=== PATIENT | female | born 1990 | race Caucasian/White ===

== ENCOUNTER → 2019-05-18 | Day surgery (SDC) | payer OTHER ==
[~2019-05-18] MED LIST: ALPRAZOLAM0.25 MG PO; DICYCLOMINE HCL10 MG PO; FENTANYL CITRATE/PF 100MCG/2 ML INJ ONE; HYDROXYZINE HCL25 MG PO; LOESTRIN FE 1-1 EACH PO; MIDAZOLAM HCL 2 MG/2 ML VIAL ONE; MIRTAZAPINE15 MG PO; PANTOPRAZOLE SO40 MG PO; PROMETHAZINE HC25 M1 PO; PROPOFOL IV EMULSION 10 MG/ML 50 ML VIAL ONE; TRIAZOLAM0.25 MG PO; TRINESSA
--- OUTSIDE RECORDS SUMMARY | 2019-05-18 06:27 | XMS REPORT | Clinical Summary ---
Author Author [facility] Address Unknown Phone Unavailable Care Team Providers Care [employer] Helper Name Role Phone Sharphoma PCP Allergies Comments Active Allergy Reactions Severity Noted Date Latex Rash Low 11/27/2016 Medications End Date Status Medication Sig Dispensed Refills Start Date Active pantoprazole (PROTONIX) Take 40 mg by 0 40 MG tablet mouth 2 (two) times daily. Active norethindrone-ethinyl Take 1 tablet 0 estradiol (LO LOESTRIN by mouth FE) 1 mg-10 mcg (24)/10 daily. mcg (2) per tablet Active ALPRAZolam (XANAX) 0.25 Take 0.25 mg 0 MG tablet by mouth as needed for Anxiety. Active dicyclomine (BENTYL) 10 Take 10 mg by 0 MG capsule mouth as needed. Active Problems Not on file Social History Date Tobacco Use Types Packs/Day Years Used Never Smoker Smokeless Tobacco: Never Used Alcohol Use Drinks/Week oz/Week Comments Yes occasional Sex Assigned at Date Recorded Not on file Industry Job Start Date Occupation Not on file Not on file Not on file Travel End Travel History Travel Start No recent travel history available. Last Filed Vital Signs Not on file Plan of Treatment Not on file Results Not on fileafter 05/17/2018 Insurance Payer Benefit Subscriber ID Type Phone Address Plan / Group [facility] HMO/POS CARE POS SELECT CHOICE BLUE CROSS/BLUE SHIELD BCBS FED xxxxxxxxx PPO [phone] [address] [place] [address]
--- OUTSIDE RECORDS SUMMARY | 2019-05-18 06:27 | XMS REPORT ---
Author Author [facility] Address Unknown Phone Unavailable Care Team Providers Care Pediatric Psychologist Name Role Phone RACHEL WEBSTER Unavailable Unavailable Keith PEREA Unavailable Unavailable RONY MORA Unavailable Unavailable Problems This patient has no known problems. Allergies, Adverse Reactions, Alerts This patient has no known allergies or adverse reactions. Medications This patient has no known medications. Results Test Description Test Time Test Comments Text Results Atomic Results Result Comments TISSUE EXAM 2016-12-04 10:34:00 LAB AP CPT CODE (EDILBERTO) (test [id number] ABDOMEN/PELVIS W [place] [address] Patient Name: SRIRAM TREVINO MR #: [id number] : 1990 Age/Sex: 27/F Req #: [id number] Adm Physician: Ordered by: RACHEL WEBSTER MD Report #: [id number] Location: ER Room/Bed: Procedure: [id number] CT/CT ABDOMEN/PELVIS W Exam D ate: 09/19/17 Exam Time: 1705 REPORT STATUS: Si gned EXAM: CT Abdomen and Pelvis WITH contrast INDICATION: Nausea, vomiti ng, abdominal pain COMPARISON: CT chest from 12/03/2016, abdominal ultrasound f rom 07/30/2016 TECHNIQUE: Abdomen and pelvis were scanned utilizing a multidet nyasia helical scanner from the lung base to the pubic symphysis after administ ration of IV contrast. Coronal and sagittal reformations were obtained. Routin e protocol was performed. Scan was performed when during portal venous phase. IV CONTRAST: 100 mL of Isovue-370 ORAL CONTRAST: Danna er RADIATION DOSE: Total DLP: 186.9 mGy*cm Estimate d effective dose: (DLP x 0.015 x size factor) mSv COMPLICATIONS: N one FINDINGS: LINES and TUBES: None. LOWER THORAX: Unremarkable HEPATOBILIARY: No focal hepatic lesions. No biliary ductal dilation. GALLBLADDER: No radio-opaque stones or sludge. No wall thickening. SP PEDRO: No splenomegaly. PANCREAS: No focal masses or ductal dilatation. ADRENALS: No adrenal nodules KIDNEYS/URETERS: Kidneys enhance symme trically. No hydronephrosis. No cystic or solid mass lesions. No stones. GI TRACT: No abnormal distention, wall thickening, or evidence of bowel obst ruction. Appendix is no visualized. No inflammatory changes in the right lower quadrant. PELVIC ORGANS/BLADDER: 2.1 cm right ovarian cyst. The uter us is normal in size. The left ovary appears unremarkable. The urinary bladder is within normal limits. LYMPH NODES: No lymphadenopathy. VESSELS: Unremarkable. PERITONEUM / RETROPERITONEUM: No free air or fluid. BONE S: Unremarkable. SOFT TISSUES: Unremarkable. IMPRESSION: No acute abnormality within the abdomen and pelvis. Signed by: Dr. Ravin Koenig M.D. on 09/19/2017 6:09 PM Dictated By: KELLY KOENIG MD 18 09 Transcribed By: GEORGINA on 09/19/17 [id number] COPY TO: RACHEL WEBSTER MD HAND 3+ VIEWS RIGHT [place] [address] Patient Name: SRIRAM TREVINO MR #: [id number] : 1990 Age/Sex: 27/F Req #: [id number] Adm Physician: Ordered by: PAIGE PEREA MD Report #: [id number] Location: ER Room/Bed: Procedure: [id number] DX/HAND 3+ VIEWS RIGHT E xam Date: 09/09/17 Exam Time: 5 REPORT STATU S: Signed EXAM: Right hand 3 views, AP, lateral and oblique DATE: September 09, 2017 Time stamp on exam: 2210 hours INDICATION: Second MCP joint hit on c ooler COMPARISON: None FINDINGS: BONES: No acute fractures. No lyt ic or blastic lesions. JOINTS: No malalignment. SOFT TISSUES: Norm al IMPRESSION: No right hand fracture Signed by: Dr. Ina benavides M.D. on 09/09/2017 10:40 PM Dictated By: INA HERNANDEZ MD Electro nically Signed By: INA HERNANDEZ MD on 09/09/172239 Transcribed By: GEORGINA on 09/09/172239 COPY TO: PAIGE PEREA MD
[2019-05-18 09:30] VITALS: BP 114/78
--- NOTE | 2019-05-18 11:51 | Operative Report ---
DATE OF PROCEDURE: 05/18/2019 SURGEON: Irvin Carpio MD PROCEDURE: Esophagogastroduodenoscopy with biopsies. INDICATIONS FOR EGD: Upper abdominal pain, bloating. MEDICATIONS: The patient was done under MAC, please see anesthesiologist's note. PROCEDURE IN DETAIL: With the patient in left lateral decubitus position, a flexible fiberoptic Olympus gastroscope was introduced into the esophagus under direct visualization without any difficulty. There was a nodule noted in the distal esophagus suspicious for squamous papilloma and that was removed per the cold biopsy forceps. There was some patchy erythema noted in distal esophagus. The scope was then advanced with ease into the stomach. Mucosa overlying the antrum and the body revealed some patchy erythema and [id number] edema and biopsies were obtained, sent to stain for H pylori. There was a? extrinsic compression, mid antrum greater curvature and the pylorus was of normal contour and shape, it was intubated with ease and the scope was advanced all the way to the second portion of the duodenum. The scope was then withdrawn slowly and biopsies were obtained from the second portion and duodenal bulb to rule out sprue. The scope was then withdrawn back into the stomach and retroflexed and mucosa overlying the fundus and cardia appeared to be within normal limits. The scope was then straightened out, it was subsequently withdrawn. The patient tolerated the procedure well. IMPRESSION: 1. Rule out squamous papilloma, distal esophagus. 2. Gastritis, biopsied. Biopsies sent to stain for Helicobacter pylori. 3. ? extrinsic compression, mid antrum, greater curvature. The patient will need a CT scan of the abdomen. Attention is antrum. 4. Rule out sprue. PLAN: Follow up histology. Initiate Protonix 40 mg one p.o. q.a.m. a.c. Irvin Carpio MD [facility]/MIGUEL /[id number] cc: Tyler Crocker DO
== END | disposition home or self-care (01) ==
LOC: OR 06:25
PROVIDERS: ATTEND Internal Medicine Gastroenterology
DX: K20.8 Other esophagitis (principal); D13.0 Benign neoplasm of esophagus; K29.70 Gastritis, unspecified, without bleeding; K31.89 Other diseases of stomach and duodenum; K21.9 Gastro-esophageal reflux disease without esophagitis; K58.9 Irritable bowel syndrome, unspecified; K59.09 Other constipation; K59.00 Constipation, unspecified; D72.820 Lymphocytosis (symptomatic); F41.9 Anxiety disorder, unspecified; Z91.040 Latex allergy status
CPT/HCPCS: 43239; 81025; J2250; J2704; J3010

== ENCOUNTER → 2021-01-16 | Outpatient (CLI) | payer OTHER ==
[~2021-01-16] MED LIST changes: -FENTANYL CITRATE/PF 100MCG/2 ML INJ ONE; +IOPAMIDOL 370 MG/ML 200 ML INFUS..BTL INJ ONE; -MIDAZOLAM HCL 2 MG/2 ML VIAL ONE; -PROPOFOL IV EMULSION 10 MG/ML 50 ML VIAL ONE; +SODIUM CHLORIDE 0.9% 50ML 50 ML ONE
== END ==
LOC: CT 07:23
PROVIDERS: ATTEND Internal Medicine Gastroenterology
DX: R10.9 Unspecified abdominal pain (principal)
CPT/HCPCS: 74160; 81025; Q9967

== ENCOUNTER → 2022-05-15 | Day surgery (SDC) | payer BC, OTHER ==
[~2022-05-15] MED LIST changes: +FENTANYL CITRATE/PF 100MCG/2 ML INJ ONE; -IOPAMIDOL 370 MG/ML 200 ML INFUS..BTL INJ ONE; +LAMICTAL5 MG PO; +LIDOCAINE HCL 2% LOCAL INJ 5 ML SDV VIAL INJ ONE; +METOCLOPRAMIDE HCL 10 MG/2ML VIAL ONE; +MIDAZOLAM HCL 2 MG/2 ML VIAL ONE; +POVIDONE IODINE 0.05% 0.05 % ML PO ONE; +PROPOFOL IV EMULSION 10 MG/ML 20 ML VIAL ONE; +SERTRALINE HCL50 MG PO; -SODIUM CHLORIDE 0.9% 50ML 50 ML ONE
[2022-05-15 15:18] VITALS: BP 117/71
== END | disposition home or self-care (01) ==
LOC: OR 12:08
PROVIDERS: ATTEND Internal Medicine Gastroenterology
DX: K22.70 Barrett's esophagus without dysplasia (principal); K29.70 Gastritis, unspecified, without bleeding; K21.9 Gastro-esophageal reflux disease without esophagitis; Z91.040 Latex allergy status; R05.9 Cough, unspecified; Z01.812 Encounter for preprocedural laboratory examination; Z20.822 Contact with and (suspected) exposure to COVID-19; K20.90 Esophagitis, unspecified without bleeding; K29.60 Other gastritis without bleeding; Z68.29 Body mass index [BMI] 29.0-29.9, adult; Z80.8 Family history of malignant neoplasm of other organs or systems; Z83.3 Family history of diabetes mellitus; Z82.49 Family history of ischemic heart disease and other diseases of the circulatory system
CPT/HCPCS: 0223U; 36415; 43239; 81025; C9113; J2001; J2250; J2704; J2765; J3010

== ENCOUNTER 2025-01-27 07:58 | Emergency (ER) | payer BC ==
[~2025-01-27] VITALS: Ht 162.6 cm; Wt 79.5 kg
[~2025-01-27 07:58] MED LIST changes: -FENTANYL CITRATE/PF 100MCG/2 ML INJ ONE; -LIDOCAINE HCL 2% LOCAL INJ 5 ML SDV VIAL INJ ONE; -METOCLOPRAMIDE HCL 10 MG/2ML VIAL ONE; -MIDAZOLAM HCL 2 MG/2 ML VIAL ONE; +ONDANSETRON ODT4 MG PO; +PEPCID20 MG PO; -POVIDONE IODINE 0.05% 0.05 % ML PO ONE; -PROPOFOL IV EMULSION 10 MG/ML 20 ML VIAL ONE
[2025-01-27 08:15] VITALS: PULSE 72; RESP 20; TEMP 98.1
[2025-01-27] MEDS: SODIUM CHLORIDE 0.9% 1000ML 1,000 ML IV ONE (08:42)
[2025-01-27 10:20] VITALS: BP 126/78; RESP 20; O2SAT 98
== END 2025-01-27 10:22 | disposition home or self-care (01) ==
LOC: FSED 08:17
DX: R10.31 Right lower quadrant pain (principal); R10.2 Pelvic and perineal pain; K21.9 Gastro-esophageal reflux disease without esophagitis; Z87.19 Personal history of other diseases of the digestive system
CPT/HCPCS: 74176; 80053; 81003; 81025; 85025; 99284; J7030

== ENCOUNTER → 2025-04-13 | Outpatient (REF) | payer BC | LOC: NM 12:47 | PROVIDERS: ATTEND Nurse Practitioner | DX: R10.11 Right upper quadrant pain (principal) | CPT/HCPCS: 78227; A9537 ==